=== PATIENT | male | born 1990 | race Caucasian/White ===

== ENCOUNTER 2018-06-21 06:04 | Day surgery (SDC) | payer OTHER ==
[2018-06-17 07:26] VITALS: BMI 25.7
[2018-06-21] MEDS ORDERED: BUPIVACAINE HCL/EPINEPHRINE/PF 30 ML VIAL IJ ONE (07:08)
[2018-06-21] MEDS ORDERED: SUCCINYLCHOLINE CHLORIDE 200 MG/10 ML VIAL ONE (07:18)
[2018-06-21] MEDS ORDERED: PROPOFOL 20 ML ONE ×2 (07:18→08:51)
[2018-06-21] MEDS ORDERED: MIDAZOLAM HCL 2 MG/2 ML SINGLE DOSE VIAL ONE (07:27)
[2018-06-21] MEDS ORDERED: DEXAMETHASONE SOD PHOSPHATE/PF 10 MG/ML SDV ONE (07:28)
[2018-06-21] MEDS ORDERED: ROPIVACAINE HCL 0.5% 30ML VIAL ONE (07:28)
[2018-06-21] MEDS ORDERED: DEXMEDETOMIDINE HCL 200 MCG/2 ML ML IVPB ONE (07:29)
[2018-06-21] MEDS ORDERED: DEXAMETHASONE SOD PHOSPHATE 4 MG/1 ML VIAL ONE (07:30)
[2018-06-21] MEDS ORDERED: ceFAZolin SODIUM 1 GM VIAL ONE (07:30)
[2018-06-21] MEDS ORDERED: SODIUM CHLORIDE 0.9% P/F 10 ML VIAL IJ ONE ×2 (07:30→07:55)
[2018-06-21] MEDS ORDERED: ONDANSETRON 4 MG/2 ML VIAL ONE ×2 (07:30→08:09)
[2018-06-21] MEDS ORDERED: KETOROLAC TROMETHAMINE 30 MG/1 ML VIAL ONE (07:30)
[2018-06-21] MEDS ORDERED: oxyCODONE HCL 5 MG TABLET PO PRN ×3 (09:25→10:45)
[2018-06-21] MEDS ORDERED: oxyCODONE HCL 10 MG SUSTAINED ACTING TABLET PO ONE (09:25)
--- NOTE | 2018-06-21 09:28 | DS ---
Physical Examination Vital Signs: Vital Signs Temperature 98.3 F 06/21/18 06:31 Pulse Rate 70 06/21/18 06:31 Respiratory Rate 16 06/21/18 06:31 Blood Pressure 128/80 06/21/18 06:31 O2 Sat by Pulse Oximetry (%) 97 06/21/18 06:39 Discharge Summary Reason For Visit: RIGHT SHOULDER POSTERIOR INSTABILITY Condition: Good - Instructions Diet, Activity, Other Instructions: Post Operative Instructions: Shoulder Arthroscopy Dr Roland Scott 1. Pain following a Shoulder Arthroscopy is variable and can be significant. Some patients will have more pain than others. You have been provided with a prescription for medication that contains a narcotic. You are not allowed to drive while on this medication. You can take Tylenol (Acetaminophen) when taking the pain medication. Feel free to take medications such as Ibuprofen or Naprosyn in addition to the pain medicine if you do not have any problems with the NSAID class of medications. 2. Apply ice to the shoulder for 15 minutes every hour. You may continue this for as many days as necessary. 3. You may find sleeping on an incline (reclining chair) to be more comfortable for the first few days. 4. You must remain in your sling at all times except when showering. The only exception to this is to allow you to stretch your elbow a few times a day to prevent your hand and forearm from swelling. 5. You are not to use your arm to reach for anything, lift anything or carry anything until instructed otherwise. 6. You may remove the bandages in 48 hours. You may shower at that point. 7. Place band-aids on the sutures after your shower.Do not put any creams or lotions on the incision until after the sutures are removed. 8. Please call the office to schedule a visit to have your sutures removed. 9. If for any reason you believe you may have an infection or are concerned, please feel free to call me. I can be reached through our office number 24 hours a day. 10. Please call our office with any questions; we will review the surgical findings during your post-operative visit. Disposition: HOME - Home Medications Comprehensive Discharge Medication List: Ambulatory Orders Acetaminophen [Tylenol -] 1,000 mg PO Q6H PRN 06/21/18
--- NOTE | 2018-06-21 09:28 | OP ---
Operative Note - Note: Operative Date: 06/21/18 Pre-Operative Diagnosis: Right shoulder posterior instability Operation: RSA, labral repair, capsular plication Post-Operative Diagnosis: Same as Pre-op Surgeon: Roland Scott Scale Balancer: Dilma Hi Anesthesiologist/SHADOWGRAPH SCALE OPERATOR: Jean Carlos Estrada Anesthesia: General Operative Report Dictated: Yes
[2018-06-21 10:01] VITALS: TEMP 97.5
--- NOTE | 2018-06-21 10:21 | HP ---
Admitting History and Physical - Admission History of Present Illness: The patient is a 27 yo male who presents today for surgery with Dr. Scott. He states that he has had a chronic injury to his right shoulder. Initially hurting himself after falling down the steps. He has had a right shoulder arthroscopsy in the past. Within the past several months his shoulder has had an increase in instability and dislocated periodically. Typically he is without pain unless the shoulder becomes dislocated. He has been working with physical therapy and has improved strength. Also, his left shoulder has instability but today will involve only surgery on the right. History Source: Patient Limitations to Obtaining History: No Limitations - Past Medical History Cardiovascular: No: Deep Vein Thrombosis Pulmonary: No: Asthma, Bronchitis Gastrointestinal: Yes: Other (IBS) Renal/: Yes: Hematuria. No: Renal Calculi - Past Surgical History Past Surgical History: Yes: Arthrosocopy (right shoulder) Additional Past Surgical History: jaw surgery to repair underbite-hardwar in place - Smoking History Smoking history: Never smoked Have you smoked in the past 12 months: No - Alcohol/Substance Use Hx Alcohol Use: No (RARELY) Home Medications - Allergies Allergies/Adverse Reactions: Allergies Allergy/AdvReac Type Severity Reaction Status Date / Time No Known Allergies Allergy Verified 06/21/18 06:29 - Home Medications Home Medications: Ambulatory Orders Acetaminophen [Tylenol -] 1,000 mg PO Q6H PRN 06/21/18 Review of Systems - Review of Systems Constitutional: reports: Unintentional Wgt. Loss. denies: Chills, Fever Neck: denies: Decreased ROM Cardiovascular: denies: Chest Pain, Palpitations Respiratory: denies: Cough, SOB Gastrointestinal: reports: Other (has had negative colonscopy/egd in the past). denies: Abdominal Pain Genitourinary: denies: Burning, Dysuria Musculoskeletal: reports: Back Pain (chronic low back pain) Hematology/Lymphatic: denies: Easily Bruised, Excessive Bleeding Physical Examination Vital Signs: Vital Signs Temperature 97.5 F L 06/21/18 09:35 Pulse Rate 88 06/21/18 09:35 Respiratory Rate 18 06/21/18 09:35 Blood Pressure 107/74 06/21/18 09:35 O2 Sat by Pulse Oximetry (%) 100 06/21/18 09:35 Constitutional: Yes: No Distress, Calm Eyes: Yes: WNL, Conjunctiva Clear, EOM Intact HENT: Yes: WNL, Atraumatic, Normocephalic Cardiovascular: Yes: WNL, Regular Rate and Rhythm Respiratory: Yes: WNL, Regular, CTA Bilaterally Gastrointestinal: Yes: WNL, Normal Bowel Sounds Musculoskeletal: No: Joint Swelling, Muscle Weakness Extremities: No: Calf Tenderness Edema: No Peripheral Pulses WNL: Yes Peripheral Pulses: Left Doralis Pedis: 1+, Right Dorsalis Pedis: 1+ Wound/Incision: Yes: Clean/Dry, Well Approximated Neurological: Yes: WNL, Alert, Oriented ...Motor Strength: LUE, LLE, RUE, RLE Psychiatric: Yes: WNL, Alert, Oriented Assessment/Plan 27 yo male with right shoulder instability Plan for OR today, right shoulder arthroscopy and possible labral repair He remains npo IV abx at time of surgery Local block per anesthesia with sedation DVT ppx with SCDs/early ambulation
[2018-06-21 10:31] VITALS: BP 110/76; PULSE 79
[2018-06-21] MEDS ORDERED: ACETAMINOPHEN 325 MG TABLET (FP) PO PRN (10:45)
[2018-06-21] MEDS ORDERED: ONDANSETRON 4 MG/2 ML VIAL IVPUSH PRN (10:45)
[2018-06-21] MEDS ORDERED: LACTATED RINGERS SOLUTION 1,000 ML IV SCH (10:45)
--- NOTE | 2018-06-21 15:34 | SURG ---
Surgery Paper Production Engineer Note Paper Production Engineer: Dilma Hi PA-C Date of Service: 06/21/18 Diagnosis: Right shoulder posterior instability Procedure: RSA, labral repair, capsular plication I was present for the entirety of the operative procedure. For further detail, please refer to operative report. Visit type - Case Type Case Type: Scheduled - Emergency Emergency Visit: No - New patient This patient is new to me today: Yes Date on this admission: 06/21/18
--- NOTE | 2018-06-25 17:05 | PATH ---
Surgical Pathology Report Patient Name: REN MARTINEZ [facility]. Rec. #: [id number] /Age/Gender: 1990 (Age: 27) / M Account: [id number] Location: [facility] Taken: 06/21/2018 Received: 06/21/2018 Reported: 06/25/2018 Physicians: Roland Scott M.D. Specimen(s) Received RIGHT SHOULDER SHAVINGS Clinical History Shoulder instability Final Diagnosis RIGHT SHOULDER SHAVINGS: FIBROCARTILAGINOUS AND SYNOVIAL TISSUE WITH FIBROSIS AND DEGENERATIVE CHANGE. Electronically Signed Joon Eugene M.D. Gross Description Received in formalin labeled "right shoulder shavings," is a 2.0 x 1.4 x 0.3 cm aggregate of craig-yellow soft tissue fragments. The formalin is filtered and the specimen is entirely submitted in one cassette. /06/24/201806/24/2018
== END 2018-06-21 10:32 | disposition home or self-care (01) ==
LOC: FASU 06:04
PROVIDERS: ATTEND Orthopaedic Surgery
PROC: 0RQJ4ZZ Repair Right Shoulder Joint, Percutaneous Endoscopic Approach (ICD-10-PCS; principal; 2018-06-21 08:24)
DX: M25.311 Other instability, right shoulder (principal)
CPT/HCPCS: 88304-TC